=== PATIENT | female | born 1935 | race Caucasian/White ===

== ENCOUNTER 2019-09-23 11:30 | Inpatient (IN) ==
[2019-09-23] MEDS ORDERED: TYLENOL PO PRN (11:41)
[2019-09-23] MEDS ORDERED: ZOFRAN IV PRN ×2 (11:41→18:20)
[2019-09-23] MEDS ORDERED: MORPHINE IV PRN (11:46)
--- NOTE | 2019-09-23 12:19 | EKG Report ---
Test Performed on : 09/23/2019 11:54:01 AM Test Reason : preop ekg; ryclaudiom eval Blood Pressure : / mmHG Vent. Rate : 081 BPM Atrial Rate : 081 BPM P-R Int : 172 ms QRS Dur : 090 ms QT Int : 394 ms P-R-T Axes : 067 039 064 degrees QTc Int : 457 ms Normal sinus rhythm. Normal ECG No previous ECGs available Confirmed by Quiana FORRESTER, Kenneth ([id number]) on 09/24/2019 8:59:00 AM
--- NOTE | 2019-09-23 13:32 | Diag Imaging Result Doc PS360 ---
EXAM: CHEST-PORTABLE INDICATION: r/o pna; preop TECHNIQUE: One view COMPARISON: None. FINDINGS: The lungs are grossly clear. There is no discrete pleural fluid collection or pneumothorax. The cardiomediastinal silhouette and central vasculature are grossly unremarkable. IMPRESSION: No evidence of acute pathology by plain radiograph. Electronically signed by Amador Maciel 09/23/2019 1:30 PM
--- NOTE | 2019-09-23 13:34 | Diag Imaging Result Doc PS360 ---
EXAM: XRAY PELVIS W/HIP 2-3VW LT INDICATION: left hip fx TECHNIQUE: 3 views COMPARISON: None. FINDINGS: There is a comminuted intertrochanteric fracture of the left hip. There is moderate displacement. There is avulsion of the lesser tuberosity. No other discrete fracture is appreciated. The surrounding soft tissues are essentially unremarkable. IMPRESSION: Left intertrochanteric hip fracture as described. Electronically signed by Amador Maciel 09/23/2019 1:32 PM
[2019-09-23] MEDS: NS 1,000 ML IV SCH ×2 (14:00→14:01)
[2019-09-23] MEDS ORDERED: XYLOCAINE-MPF 2% ONE (16:46)
[2019-09-23] MEDS ORDERED: DIPRIVAN 1% ONE (16:46)
[2019-09-23 16:49] LABS: URINE SOURCE CATH
[2019-09-23 16:53] LABS: BILIRUBIN URINE NEGATIVE (NEGATIVE); BLOOD URINE NEGATIVE (NEGATIVE); COLOR YELLOW; GLUCOSE URINE NEGATIVE (NEGATIVE); KETONE URINE TRACE mg/dL (NEGATIVE); LEUKOCYTES URINE NEGATIVE (NEGATIVE); NITRITE URINE NEGATIVE (NEGATIVE); PH URINE 6.5; PROTEIN URINE NEGATIVE (NEGATIVE); SP GRAVITY URINE 1.015; TURBIDITY URINE CLEAR (CLEAR); UROBILINOGEN URINE NORMAL (NORMAL)
[2019-09-23 16:54] LABS: UR EPITHELIAL CELLS <10 /HPF (<10); URINE BACTERIA NEGATIVE /HPF; URINE RBC <10 /HPF (<10); URINE WBC <10 /HPF (<10)
[2019-09-23] MEDS ORDERED: KEFZOL 1 GM/D5W 1 GM/50 ML IVPB ONE (16:54)
[2019-09-23 17:06] LABS: I-STAT BE 1 mmoll (-2-3); I-STAT GLUCOSE 143 mg/dL (70-105); I-STAT HEMOGLOBIN 12.6 g/dL (11.5-17.5); I-STAT K 4.7 mmoll (3.5-4.9); I-STAT SODIUM 135 mmoll (138-146); I-STAT TCO2 28 mmoll (23-27); I-STAT pH 7.359 (7.350-7.450)
--- NOTE | 2019-09-23 17:18 | HISTORY AND PHYSICAL ---
PRIMARY CARE PROVIDER: Dr. Hernandez. CHIEF COMPLAINT: Fall with left hip pain. HISTORY OF PRESENT ILLNESS: Ms. Becca Chaparro is an 83-year-old female with a medical history of hypothyroidism, hypertension, arthritis, who presents after being pushed down by a door. She was going in for her routine every 6 months lab work, was standing by a mechanical door at [facility]. The door went open, she could not move fast enough out of the way, it pushed her down, and she fractured her left intertrochanteric hip. Otherwise, she has no complaints other than pain. The left leg is shorter and rotated out. PAST MEDICAL HISTORY: 1. Hypothyroidism. 2. Hypertension. 3. Arthritis. PAST SURGICAL HISTORY: Right arm melanoma excision. SOCIAL HISTORY: Denies tobacco, alcohol, or illicit drug use. She lives at home by herself. Walks without any difficulties. FAMILY HISTORY: Mother had lung cancer. Father when she was 7 weeks old. He was age of 29. She had 2 brothers that had muscular dystrophy. They between ages 12 and 14. ALLERGIES: No known drug allergies. HOME MEDICATION: Not yet reconciled. REVIEW OF SYSTEMS: Fourteen point review of systems are complete and all were negative except for those mentioned above in HPI. PHYSICAL EXAMINATION: VITAL SIGNS: Temperature 97.5 degrees, heart rate 82, respiratory rate 16, blood pressure 141/69, O2 saturation 97% on room air, 5 feet 7 inches tall, 135 pounds, BMI is 21.1. GENERAL: Ms. Becca Chaparro is an 83-year-old female. She is in no acute distress. She is able to answer questions appropriately. HEENT: Atraumatic, normocephalic. Pupils equal, round, reactive to light. Extraocular movements intact. Mucous membranes are dry. NECK: Trachea midline. CARDIOVASCULAR: S1, S2. Regular rate and rhythm. No rubs, gallops, murmurs. No lower extremity edema. There are +2 dorsalis and radial pulses. Negative for JVD or carotid bruits. PULMONARY: Clear to auscultate bilateral breath sounds. No accessory muscle use or work of breathing noted. GI: Soft, nontender, nondistended. Positive bowel sounds x4. EXTREMITIES: Moves all extremities equally except for the left lower extremity secondary to fracture. NEUROLOGIC: A O x3. Follows commands. Sensory is intact. SKIN: Warm, dry, intact. LABORATORY DATA: Those are still pending; they have been ordered. IMAGING: Chest x-ray: No acute findings. Hip and pelvic x-ray: Left intertrochanteric hip fracture, moderate displacement, avulsion, it is comminuted. EKG: Normal sinus rhythm, rate 81, QTc 457. ASSESSMENT AND PLAN: 1. Left intertrochanteric hip fracture. Dr. Mirza plans on performing surgical intramedullary nailing of the left hip. Currently she is n.p.o. Awaiting labs. 2. Hypothyroidism. Once home medications are verified will continue Synthroid. 3. Hypertension. Again, once home medications are verified will continue those medications. 4. Arthritis. Currently for the hip pain she is going to have morphine. 5. Deep venous thrombosis prophylaxis. SCDs for now. Dictated by MEGAN Diamond for Jina Pineda MD cc: MEGAN Diamond MD I performed a face to face encounter on the patient. I reviewed all labs and imaging on the patient. I agree with the H&P as dictated. is a 83 year old female who was transferred to [facility] after suffering a fall resulting in a left intertrochanteric hip fracture. On exam, the patient is alert and oriented x 3. Her breath sounds are clear to auscultation. Her heart sounds are regular. Will follow up on the labs and consult orthopedic surgery for assistance with management of the hip fracture. YAAKOV
[2019-09-23] MEDS ORDERED: SODIUM CHLORIDE 0.9% 20 ML ONE (17:26)
[2019-09-23] MEDS ORDERED: NEO-SYNEPHRINE ONE (17:26)
[2019-09-23] MEDS ORDERED: ROBINUL ONE (17:27)
[2019-09-23] MEDS ORDERED: ZOFRAN ONE (17:27)
[2019-09-23] MEDS ORDERED: FENTANYL ONE (17:28)
[2019-09-23 17:29] LABS: INR 0.99; PROTIME 13.2 Seconds (11.0-16.0)
[2019-09-23 17:30] LABS: PTT 29.3 Seconds (22.3-41.8)
[2019-09-23 17:33] LABS: BASO# 0.02 X1000 (0.0-0.2); BASO% 0.1 % (0.0-0.8); HEMATOCRIT 37.6 % (37.0-47.0); HEMOGLOBIN 12.5 g/dL (12.0-16.0); IMM GRAN# 0.04 X1000 (0.0-0.04); IMM GRAN% 0.2 % (0.0-0.5); LYMPH# 0.96 X1000 (1.2-3.4); LYMPH% 5.6 % (20.5-51.1); MCH 29.8 PG (27-31); MCHC 33.2 g/dL (33-37); MCV 89.7 FL (81-99); MONO# 0.53 X1000 (0.11-0.59); MONO% 3.1 % (1.7-9.3); MPV 9.8 FL (7.4-10.4); NEUT# 15.67 X1000 (1.4-6.5); PLT 373 X1000 (130-400); RBC 4.19 XMIL (4.2-5.4); RDW 12.9 % (11.5-14.5); WBC 17.22 X1000 (4.8-10.8)
[2019-09-23 17:41] LABS: ALB/GLOB RATIO 1.8; ALBUMIN 4.4 g/dL (3.5-5.0); CALCIUM 9.9 mg/dL (8.8-10.2); MAGNESIUM 1.7 mg/dL (1.5-2.7); POTASSIUM 4.9 mmol/L (3.5-5.1); TOTAL BILIRUBIN 0.38 mg/dL (0.20-1.00); TOTAL PROTEIN 6.8 g/dL (6.3-8.3)
[2019-09-23] MEDS ORDERED: MARCAINE 0.25% PF/EPI 1:200,000 ONE (17:57)
[2019-09-23 18:13] LABS: HEMOGLOBIN A1C 5.5 % (4.8-6.0)
[2019-09-23 18:15] LABS: BANDS 1 % (0-1); LYMPHS 3 % (21-51); SEGS 96 % (42-75)
[2019-09-23] MEDS ORDERED: OXY IR PO PRN (18:20)
[2019-09-23] MEDS ORDERED: HALDOL IV PRN (18:20)
[2019-09-23] MEDS ORDERED: NS 1,000 ML ONE (18:31)
--- NOTE | 2019-09-23 19:29 | Diag Imaging Result Doc PS360 ---
XRAY PELVIS W/HIP 2-3VW LT - 09/23/2019 6:33 PM INDICATION: Post op Hip fx TECHNIQUE: Three views COMPARISON: 1:08 PM FINDINGS: There has been placement of a left femoral neck stabilization russ in good position. Alignment is anatomic. No hardware fracture or loosening. IMPRESSION: No complication. Electronically signed by Kenn Lamar 09/23/2019 7:25 PM
--- NOTE | 2019-09-23 19:29 | Diag Imaging Result Doc PS360 ---
FEMUR MIN 2 VIEWS LEFT - 09/23/2019 INDICATION: Post op Hip fx TECHNIQUE: Two views COMPARISON: None FINDINGS: There is a left femoral neck stabilization russ. Alignment is anatomic. No hardware fracture or loosening. IMPRESSION: No complication. Electronically signed by Kenn Lamar 09/23/2019 7:26 PM
--- NOTE | 2019-09-23 20:23 | ORTHOPAEDICS CONSULTATION ---
DATE: 09/23/2019 FAMILY PHYSICIAN: Vish Hernandez MD. REASON FOR CONSULTATION: Left intertrochanteric hip fracture. PAST MEDICAL HISTORY: 1. Right arm melanoma. 2. Hypertension. 3. Hypothyroidism. PAST SURGICAL HISTORY: Removal of right arm melanoma in 2005. ALLERGIES: No known drug allergies. FAMILY HISTORY: Noncontributory. REVIEW OF SYSTEMS: A 10 point review of systems was reviewed and negative except what is listed in HPI. CHIEF COMPLAINT: Left hip pain. HISTORY OF PRESENT ILLNESS: Ms. Chaparro is an 83-year-old female who was at [facility] this morning having her lab work drawn, when the automatic door started to close behind her and caused her to trip. She fell from standing height onto her left hip and developed immediate pain. She was evaluated at [facility]'s ER and a left intertrochanteric hip fracture was discovered on imaging. She was transferred to [facility] for orthopedic services. She denies hitting her head or any loss of consciousness, and she denies any pain elsewhere. PHYSICAL EXAMINATION: General: Ms. Chaparro is lying in bed with no complaints at this time. Her family is at bedside. She is in no acute distress. She is well developed. She is awake, alert, and oriented x3. Vital Signs: Her temperature is 98 degrees, her heart rate is 90, and her blood pressure is 143/72. HEENT: Normocephalic and atraumatic. Respiratory: Nonlabored breathing. Cardiovascular: Regular rate and rhythm. Extremities: Her left lower extremity is shortened and externally rotated. She has some mild swelling around the left hip. Skin: Intact with no indication of an open fracture. She does have some tenderness to palpation over her left hip. She has 2+ pedal pulse and has no swelling to her foot. She is able to wiggle her toes without any difficulty. LABS: There are no labs available for review at this time. IMAGING: The hip and pelvis x-ray reveals a left intertrochanteric hip fracture that is comminuted with moderate displacement. There is also an avulsion of the lesser tuberosity. ASSESSMENT: An 83-year-old female with a left intertrochanteric hip fracture. PLAN: Discussion was had with the patient and her family regarding diagnosis and treatment options by Dr. Mirza. Given her clinical exam and medical history, it was recommended that the patient have intramedullary nailing of her left femur. Dr. Mirza reviewed risks and benefits with the family at bedside. She will go to the OR tonight and Dr. Thompson will perform the surgery. All questions were answered at this time. Dictated by MEGAN Manrique for Jamil Mirza MD cc: Jamil Mirza MD [facility]
[2019-09-23] MEDS: COLACE PO SCH (20:41)
[2019-09-23] MEDS: MORPHINE IV PRN (20:41)
[2019-09-24] MEDS: KEFZOL 1 GM/D5W 1 GM/50 ML IVPB IV SCH ×3 (01:05→17:24)
[2019-09-24] MEDS: NS 1,000 ML IV SCH ×5 (01:05→17:23)
[2019-09-24] MEDS: TYLENOL PO SCH ×4 (03:22→17:50)
--- NOTE | 2019-09-24 07:14 | OPERATIVE NOTE ---
PROCEDURE DATE: 09/23/2019 PREOPERATIVE DIAGNOSIS: Left intertrochanteric femur fracture. POSTOPERATIVE DIAGNOSIS: Left intertrochanteric femur fracture. PROCEDURE PERFORMED: Closed reduction and intramedullary nailing of left intertrochanteric femur fracture. SURGEON: Tony Thompson MD. BUFFET WAITER/WAITRESS: Mehul Sterling, whose help was needed for the reduction and placement of implants. ANESTHESIA: General endotracheal anesthesia. COMPLICATIONS: None. SPECIMENS: None. DRAINS: None. BLOOD LOSS: 100 mL. IMPLANTS: Synthes left-sided TFN nail measuring 420 mm x 11 mm with a 95 mm helical blade and a 50 mm distal interlocking screw. INDICATIONS FOR PROCEDURE: Ms. Chaparro is an 83-year-old lady who presented to [facility] earlier this morning after sustaining a same-level fall onto her left hip. She was transferred from outside facility for orthopedic evaluation. X-rays taken in the ER showed a left intertrochanteric femur fracture. Given these findings, orthopedic surgery was consulted. The patient denies any pain in her hip prior to this fall. She was a community ambulator without any assistive device. She does not drive. She does live alone. Given her fracture pattern, a decision was made to proceed with closed reduction and intramedullary nailing in order to allow her to mobilize and heal the fracture. Risks, benefits, and alternative therapies were discussed with the patient regarding surgery. Risks of surgery include, but are not limited to risks of bleeding, infection, damage to nerves or vessels around the area, continued pain following surgery, need for revision surgery. There are also risks of anesthesia including blood clot, stroke, heart attack, even . Patient understands these risks. All questions were answered. Informed consent was obtained. PROCEDURE IN DETAIL: Ms. Chaparro was identified by wrist band and greeted in the preoperative holding area on 09/23/2019. Her left lower extremity, which was the operative site, was then marked with indelible ink per [facility] Sign your Site protocol. Following this, the patient was transferred back to the operating room for surgery. Upon entering the OR, general endotracheal anesthesia was induced. The patient was then placed into well-padded boot holders and transferred over to the [place] table in a supine position. All bony prominences were well-padded. At this time, the fluoroscopy was brought. A reduction maneuver was performed, confirming reduction of the fracture site. At this time, the left lower extremity was then prepped and draped in routine sterile fashion. Formal time-out was performed, confirming correct patient, procedure, operative site, operative side, administration of preop antibiotics. Everyone was in agreement. The patient received 2 g of Ancef prior to incision. A 10 blade knife was used to make a standard 3 cm longitudinal incision 2 cm proximal to the greater trochanter. Knife was used to dissect through skin, subcutaneous fat, and deep fascia. At this time, a finger was placed in the wound and the tip of the greater trochanter was palpated. A guidewire was then placed for our starting pin on the tip of the greater trochanter. AP and lateral images were then taken, confirming placement of our guidewire. When we were satisfied with this, it was driven down to the level of the lesser trochanter. Once this was done, an entry reamer was then used to enter the femur. We then placed a ball-tip guidewire down to the level of the patella. The nail length was then measured and found to be 420 mm. At this time, a 12 mm reamer was then taken down the canal. We then opened an 11 mm x 420 mm left-sided TFN nail. Nail was assembled on the back table and then inserted in a routine fashion. X-rays were taken of both the knee and hip, confirming proper seating of the implant. At this time, our second, more distal incision was then made using the aiming-arm cannulated guide. Knife was used to make a 2 cm longitudinal incision through skin and IT band. Our cannula for the cephalomedullary screw was then inserted, locked into place, and taken down to the lateral femoral cortex. At this time, a guidewire was then driven up into the femoral neck using image on both AP and lateral views, confirming center-center placement of the pin. Once the pin was taken up the subchondral bone, we then measured and it was found to be a 95 mm blade. At this time, a 95 mm helical blade was opened and impacted in position in routine fashion. Compression was then obtained across the fracture site. The top of the nail was then taken all the way down and loosened half a turn to allow for compression across the fracture site. Once this was done, aiming-arm was removed and a distal interlocking screw was placed using perfect [place] technique. The screw was found to measure 50 mm. It was placed in routine fashion with good bite. At this time, we then obtained final AP and lateral images of the fracture site as well as distally, confirming placement of our interlocking screw. We were satisfied with position of the implants and reduction of the fracture. The wounds were then copiously irrigated with normal saline. Then 0 Vicryl suture was used for closure of the IT band and deep fascia in the proximal wound. Then 2-0 Vicryl sutures were used for subcutaneous tissue closure, followed by reese for skin closure. Then 20 mL of 0.25% Marcaine with epinephrine were injected around surgical incision sites. Wounds were then dressed with Xeroform and Telfa island dressings. At this time, the patient was then extubated, transferred over to the hospital stretcher, and taken to recovery in stable condition. There were no acute complications of the procedure. All sponge and sharp counts were correct at the conclusion of the procedure.
[2019-09-24 07:16] LABS: BASO# 0.01 X1000 (0.0-0.2); BASO% 0.1 % (0.0-0.8); HEMATOCRIT 26.3 % (37.0-47.0); HEMOGLOBIN 8.4 g/dL (12.0-16.0); IMM GRAN# 0.02 X1000 (0.0-0.04); IMM GRAN% 0.2 % (0.0-0.5); LYMPH# 1.12 X1000 (1.2-3.4); MCH 29.2 PG (27-31); MCHC 31.9 g/dL (33-37); MCV 91.3 FL (81-99); MONO# 1.37 X1000 (0.11-0.59); MPV 9.7 FL (7.4-10.4); NEUT# 9.92 X1000 (1.4-6.5); NEUT% 79.7 % (42.2-75.2); PLT 313 X1000 (130-400); RBC 2.88 XMIL (4.2-5.4); RDW 12.9 % (11.5-14.5); WBC 12.44 X1000 (4.8-10.8)
[2019-09-24 07:30] LABS: ALB/GLOB RATIO 1.5; ALBUMIN 3.1 g/dL (3.5-5.0); CALCIUM 8.1 mg/dL (8.8-10.2); CREATININE 1.3 mg/dL (0.5-0.9); MAGNESIUM 1.6 mg/dL (1.5-2.7); POTASSIUM 4.8 mmol/L (3.5-5.1); TOTAL BILIRUBIN 0.33 mg/dL (0.20-1.00); TOTAL PROTEIN 5.2 g/dL (6.3-8.3)
[2019-09-24] MEDS: FERROUS SULFATE PO SCH (09:22)
[2019-09-24] MEDS: BENICAR PO SCH ×2 (09:22→09:26)
[2019-09-24] MEDS: SYNTHROID PO SCH (09:22)
[2019-09-24] MEDS: NORVASC PO SCH ×2 (09:23→09:26)
--- NOTE | 2019-09-24 11:58 | Diag Imaging Result Doc PS360 ---
ANKLE COMPLETE RIGHT - 09/24/2019 INDICATION: pain TECHNIQUE: Three views COMPARISON: None FINDINGS: Bones are intact and normally aligned. There is a small degenerative heel spur. Joint spaces are preserved. IMPRESSION: No acute disease. Electronically signed by Kenn Lamar 09/24/2019 11:56 AM
--- NOTE | 2019-09-24 11:59 | Diag Imaging Result Doc PS360 ---
FOOT COMPLETE RIGHT - 09/24/2019 INDICATION: right foot pain TECHNIQUE: Three views COMPARISON: None FINDINGS: There is significant hallux valgus. There are small degenerative heel spurs. There are hammertoe deformities. No fractures or bony erosions. IMPRESSION: Chronic changes. Electronically signed by Kenn Lamar 09/24/2019 11:57 AM
[2019-09-24] MEDS: MORPHINE IV PRN ×2 (15:50→22:42)
[2019-09-24] MEDS: LOVENOX SUBQ SCH (17:53)
[2019-09-24] MEDS ORDERED: NS 1,000 ML IV SCH (18:14)
[2019-09-24] MEDS: COLACE PO SCH (20:56)
--- NOTE | 2019-09-24 21:33 | PROGRESS NOTE ---
DATE: 09/24/2019 INTERVAL HISTORY: Ms. Chaparro had drop in her hemoglobin as well as acute kidney injury. SUBJECTIVE: She denies chest pain, shortness of breath, nausea, vomiting, abdominal pain. She has been passing gas. Has not had any bowel movement. She complains of some soreness on the left lower extremity. She has not been yet seen by physical therapy. We discussed about anemia treatment options. We also discussed about acute kidney injury. The family is at bedside. All of their questions have been answered. She underwent left intertrochanteric intramedullary nailing with closed reduction yesterday which she tolerated well. VITALS: Temperature of 99.2 degrees, pulse 92, respiratory 14 blood pressure acceptable, saturating 94% room air. PHYSICAL EXAMINATION: Not in acute distress. Oral cavity is moist. Air entry bilaterally equal. No wheeze, rhonchi, crackles. S1, S2 normal. No murmur or gallop.Abdomen: Soft, nontender. No lower extremity edema. She does have arthritis affecting bilateral feet. There is mild tenderness on left lateral thigh incision which is not soaked . She is able to wiggle both toes, add intact perfusion, mild leukocytosis, acute blood loss anemia, normal platelet count, acute kidney injury. Microbiology, blood cultures were drawn for some reason which are in lab. IMAGING: Ankle x-ray today suggest no acute disease. Foot x-ray does not have any acute fracture or bony erosions. ASSESSMENT AND PLAN: 1. Mechanical fall leading to left intertrochanteric hip fracture status post intramedullary nailing and closed reduction on September 23, continue pain management according to orthopedic recommendations with oxycodone and acetaminophen as well as needed morphine. I will start her on enoxaparin for DVT prophylaxis . 2. Acute blood loss anemia likely because of intraoperative blood loss. She denies any symptoms of anemia such as chest pain, shortness of breath or dizziness at rest. I will repeat hemoglobin tomorrow, will keep her on oral iron next. 3. Essential hypertension currently well controlled. I will keep her on amlodipine and hold angiotensin receptor blockers for now considering her acute kidney injury. 4. Acute kidney injury could be related to intravascular volume depletion as well as blood loss or hypotension sustained during surgery. Follow up with [facility] tomorrow, continue levothyroxine for hypothyroidism. DISPOSITION: Awaiting physical therapy recommendation. Social Work will be consulted for rehab placement. Plan of care discussed with patient and her family at bedside. Their questions have been answered. cc: Alex Chang MD MTDD
[2019-09-25] MEDS: TYLENOL PO SCH ×4 (02:31→17:51)
[2019-09-25 07:12] LABS: BASO# 0.04 X1000 (0.0-0.2); BASO% 0.5 % (0.0-0.8); EOS# 0.06 X1000 (0.0-0.7); EOS% 0.8 % (0.0-10.0); HEMATOCRIT 22.1 % (37.0-47.0); LYMPH# 1.54 X1000 (1.2-3.4); MCH 28.9 PG (27-31); MCHC 31.7 g/dL (33-37); MCV 91.3 FL (81-99); MONO# 0.91 X1000 (0.11-0.59); MONO% 12.4 % (1.7-9.3); MPV 9.9 FL (7.4-10.4); NEUT# 4.79 X1000 (1.4-6.5); NEUT% 65.3 % (42.2-75.2); PLT 256 X1000 (130-400); RBC 2.42 XMIL (4.2-5.4); WBC 7.34 X1000 (4.8-10.8)
[2019-09-25 07:33] LABS: ALB/GLOB RATIO 1.4; ALBUMIN 2.9 g/dL (3.5-5.0); CALCIUM 7.9 mg/dL (8.8-10.2); MAGNESIUM 1.7 mg/dL (1.5-2.7); POTASSIUM 4.3 mmol/L (3.5-5.1); TOTAL BILIRUBIN 0.28 mg/dL (0.20-1.00)
--- NOTE | 2019-09-25 08:25 | ORTHOPAEDICS PROGRESS NOTE ---
DATE: 09/24/2019 SUBJECTIVE: No acute events overnight. Patient is doing well. She reports minimal pain in the left hip. She is complaining of some pain in her right lateral ankle and foot. She is tolerating a diet. A Lord catheter is in place. No other complaints. OBJECTIVE: Hematocrit 26. Afebrile. Vital Signs stable. Extremity Examination: Left lower extremity shows surgical incisions to be clean, dry, and intact with dressings in place. Thigh and calf soft and compressible. Neurovascularly intact. Examination of right lower extremity shows skin intact over the right ankle. Patient is nontender over her medial and lateral malleolus. Negative calcaneal squeeze test. Nontender in the midfoot and forefoot. She has tenderness to palpation over her ATFL ligament laterally. Ankle is stable to anterior drawer testing. Neurovascularly intact. Imaging: Postoperative AP and lateral of the femur and hip were reviewed, demonstrating good reduction of fracture and placement of implants. Three views of the right ankle were reviewed, demonstrating no fracture or dislocation. Three views of the right foot were also reviewed, demonstrating no fracture or dislocation. The patient has hallux valgus deformity of the great toe. No acute osseous abnormalities. ASSESSMENT: An 83-year-old female status post closed reduction and intramedullary nailing of a left intertrochanteric femur fracture. Postoperative day 1. Patient also has a right low ankle sprain. PLAN: 1. Patient be weightbearing as tolerated with physical therapy. Physical therapy to mobilize with a rolling walker. In regards to her right ankle, if she has significant pain with the ankle while bearing weight, we will get her fitted with a tall walking boot. She can be weightbearing as tolerated with the right ankle. X-rays were negative. 2. I appreciate hospitalist's recommendations. 3. Ice to the left lower extremity as needed for pain. 4. Lovenox, DVT prophylaxis. 5. Disposition per primary team. The patient has not yet ambulated with physical therapy as she is awaiting results of her foot and ankle x-rays. We will see how she does in therapy to determine whether or not she needs to go to inpatient rehab versus home with home health physical therapy. I will follow up with her in clinic in 2 weeks for a wound check and x- rays.
[2019-09-25] MEDS: SYNTHROID PO SCH (08:59)
[2019-09-25] MEDS: NORVASC PO SCH (08:59)
[2019-09-25] MEDS: FERROUS SULFATE PO SCH (08:59)
[2019-09-25] MEDS: LOVENOX SUBQ SCH (17:51)
[2019-09-25] MEDS: COLACE PO SCH (22:06)
[2019-09-25] MEDS: MIRALAX PO SCH (22:31)
[2019-09-26] MEDS: TYLENOL PO SCH ×4 (04:14→11:43)
[2019-09-26 07:21] LABS: HEMATOCRIT 21.3 % (37.0-47.0); HEMOGLOBIN 6.9 g/dL (12.0-16.0)
--- NOTE | 2019-09-26 08:17 | PROGRESS NOTE ---
DATE: 09/25/2019 INTERVAL HISTORY: No acute events overnight. She states she was able to walk a couple of steps out of bed and sit in the chair but she needed some support. She denies any complaints. We discussed about checking hemoglobin. We discussed about checking vitamin B12 as per family's request. SUBJECTIVE: Ms Chaparro is denying chest pain, shortness of breath or cough. She had nausea in the morning time and had an episode of vomiting, but since then she has been feeling well. She states she had a bowel movement yesterday. Her kidney function has recovered. VITAL SIGNS: Temperature of 99.4 degrees, pulse 90, respiratory rate 16, blood pressure 130/49, saturating 97% on room air. PHYSICAL EXAMINATION: General: Not in acute distress. Oral cavity is moist. Lungs: Air entry bilaterally equal. No wheeze, rhonchi, crackles. Cardiovascular: S1, S2 normal. No murmur, rub or gallop. Abdomen: Soft, nontender. Extremities: No lower extremity edema. She is alert and oriented x3. Mild conjunctival pallor. LABORATORY DATA: Suggestive of drop in hemoglobin to 7, platelet count of 256,000. She does have resolution of acute kidney injury. MICROBIOLOGY: No positive data. IMAGING: No positive data. ASSESSMENT: 1. Mechanical fall leading to left intertrochanteric femoral fracture status post intramedullary nailing and closed reduction on September 23. 2. Acute blood loss anemia due to intraoperative blood loss. 3. Acute kidney injury due to suspected blood loss or hypotension during surgery. 4. Essential hypertension. PLAN: I will repeat hemoglobin tomorrow. If her hemoglobin is less than 7, my plan is to transfuse her with 1 unit of packed red blood cells. She is not tachycardic or dizzy to suggest a symptomatic anemia at the moment. I will keep her iron sulfate and follow up with vitamin B12 level. I will also start her on Xarelto for DVT prophylaxis. DISPOSITION: Likely rehab on 09/26/2019. cc: Alex Chang MD
[2019-09-26] MEDS ORDERED: NS 500 ML IV ONE (08:45)
[2019-09-26] MEDS: MIRALAX PO SCH (09:07)
[2019-09-26] MEDS: SYNTHROID PO SCH (09:07)
[2019-09-26] MEDS: FERROUS SULFATE PO SCH (09:07)
[2019-09-26] MEDS: NORVASC PO SCH (09:08)
--- NOTE | 2019-09-26 09:09 | ORTHOPAEDICS PROGRESS NOTE ---
DATE: 09/25/2019 SUBJECTIVE: No acute events overnight. The patient has gotten up and ambulated some with physical therapy today. She states her right ankle feels okay without a boot or anything on it. She is still reporting some pain in her left hip, but overall feels a little better. She denies any symptoms of orthostatic hypotension. She denies any lightheadedness, nausea, vomiting. OBJECTIVE: Hematocrit is 22 today.Extremities: Examination of left lower extremity shows surgical incision to be clean, dry, intact. Thigh is soft and compressible. Neurovascular: Intact. ASSESSMENT: An 83-year-old female status post closed reduction and intramedullary nailing of left intertrochanteric femur fracture. Postop day #2. PLAN: 1. Patient will be weightbearing as tolerated left lower extremity. PT to mobilize. I do not think she needs a boot on the right ankle and I think this will be more bulky and cumbersome. She does have a grade 1 low ankle sprain on the right side. 2. Lovenox deep venous thrombosis prophylaxis. 3. Her hematocrit dropped to 22. She is asymptomatic. However, she did have a slight bump in her creatinine indicating possible acute kidney injury. We will defer to hospitalist recommendations on transfusion. 4. Disposition per primary team. I will see the patient in clinic in 2 weeks for wound check and staple removal as well as repeat x-rays.
[2019-09-26 14:48] VITALS: BP 140/80
--- NOTE | 2019-09-26 14:59 | DISCHARGE SUMMARY ---
ADMISSION DATE: 09/23/2019 DISCHARGE DATE: 09/26/2019 DISCHARGE DISPOSITION: Rehab. DISCHARGE CONDITION: Hemodynamically stable. She is getting her blood transfusion, and she has been tolerating it well so far. The patient will be discharged to rehab. She is alert and oriented x3. Hemodynamically stable. DISCHARGE DIAGNOSES: 1. Mechanical fall. 2. Left intertrochanteric femoral fracture after mechanical fall. 3. Acute blood loss anemia. 4. Acute kidney injury due to intravascular volume depletion likely experienced during operating room surgery. 5. Essential hypertension. OTHER DIAGNOSES: 1. History of hypothyroidism. 2. Essential hypertension. 3. Arthritis. DISCHARGE MEDICATIONS: 1. Amlodipine benazepril 1 capsule daily, 40 mg capsule. 2. Levothyroxine 25 mcg daily. 3. Docusate 200 mg at nighttime. 4. Xarelto 10 mg at nighttime for DVT prophylaxis for 25 days. 5. Ferrous sulfate 325 mg daily. 6. MiraLAX 17 g b.i.d. 7. Oxycodone immediate release 5 mg every 8 hours as needed for pain not controlled with acetaminophen. 8. Acetaminophen 1000 mg every 8 hours as needed for pain. VITALS: At the time of discharge, temperature 99.4 degrees, pulse 86, respiratory rate 16, blood pressure 127/60, saturating 91% on room air. PHYSICAL EXAMINATION: General: Not in acute distress. Oral cavity: Moist. Lungs: Air entry bilaterally equal. No wheeze, rhonchi, crackles. Cardiovascular: S1, S2 normal. Regular. No murmur or gallop. Abdomen: Soft, nontender. Extremities: No lower extremity edema. She is able to move both of her feet. Lateral thigh incision on the left side is only mildly tender. There are reese on without any bleeding or pus-like discharge. The patient denies any chest pain, shortness of breath, cough, nausea, vomiting. SIGNIFICANT LABS: During hospital admission and discharge, her WBC 7.3. Her hemoglobin is 6.9, and she is getting 1 unit of blood transfusion. Her platelet was 256. Her BUN is 14, creatinine of 1. Her vitamin B 12 is 483. SIGNIFICANT MICROBIOLOGY: Blood culture did not have any growth. SIGNIFICANT IMAGING: On presentation, chest x-ray did not have any acute pathology. Hip and pelvis and femoral x-ray had left intertrochanteric hip fracture. Ankle x-ray and foot x-ray on the left side had osteoarthritic changes. Electrocardiogram on presentation had normal sinus rhythm. CONSULTATION DURING HOSPITAL ADMISSION: Orthopedic, Dr. Thompson. SURGERY DURING HOSPITAL ADMISSION: The patient underwent closed reduction and intramedullary nailing of left intertrochanteric femoral fracture on 09/23/2019. HOSPITAL COURSE SUMMARY: Ms. Chaparro is an 83-year-old lady who initially presented on 09/23/2019 after a mechanical fall. She had prior history of arthritis. Apparently, she was going for her routine physical checkup and lab work and she was standing by the mechanical door. When the door went open, she could not move fast enough out of the way and it pushed her down, and she fell down and fractured her left intertrochanteric hip. So she was brought to the emergency room and she underwent intramedullary nailing and closed reduction of left intertrochanteric fracture, which she tolerated well. Postoperatively, she developed acute blood loss anemia sustained during surgery, as well as acute kidney injury. Her antihypertensive medications were held since she was listed to be taking JESSE inhibitors. Her blood count dropped to less than 7. It was decided to give her 1 unit of blood transfusion, after which she will be discharged. At the time of discharge, she is also started on Xarelto for deep venous thrombosis prophylaxis. TIME SPENT: More than 30 minutes of time was spent in discharging this patient. All of the patient's and patient's family's questions were answered at bedside. cc: Alex Chang MD
[2019-09-26] MEDS ORDERED: XARELTO PO SCH (21:00)
== END 2019-09-26 15:47 | DRG 481 ==
LOC: 4N 11:30 → SUATTDRO 11:30
PROVIDERS: ATTEND Internal Medicine